=== PATIENT | female | born 1960 | race Caucasian/White ===

== ENCOUNTER 2017-11-21 09:47 | Emergency (ER) | payer OTHER ==
[~2017-11-21] VITALS: Ht 162.6 cm; Wt 78.6 kg
[~2017-11-21 09:47] MED LIST: ABILIFY10 MG PO; ALBUTEROL SULF8.5 GM IH; ALBUTEROL2.5 MG/3 M IH; AMBIEN10 MG PO; ATIVAN1 MG PO; CARDIZEM CD,CA120 MG PO; CARTIA XT120 MG PO; CELEXA40 MG PO; CITALOPRAM HBR40 MG PO; CVS MENOPAUSE PO; DILTIAZEM 24HR120 MG PO; ELAVIL25 MG PO; ELIQUIS2.5 MG PO; LASIX20 MG PO; LOPRESSOR50 MG PO; LORAZEPAM1 MG PO; MENOPAUSE RELI1 EACH PO; METOPROLOL TART50 MG PO; NORCO 5/3251 TABLET PO; PREDNISONE10 MG PO; PREDNISONE20 MG PO; PROAIR HFA8.5 GM IH; PROVENTIL,2.5 MG/3 M IH; ROBITUSSIN DM118 ML PO; ROBITUSSIN100 MG/5 M PO; SIMVASTATIN20 MG PO; SPIRIVA1 INHALATI IH; SYMBICORT60 INHALAT IH; XARELTO20 MG PO; ZOCOR20 MG PO; ZOLPIDEM TARTRA10 MG PO
[2017-11-21] MEDS ORDERED: DOXYCYCLINE HY100 MG PO (13:06)
[2017-11-21 13:34] VITALS: BP 103/75
== END 2017-11-21 13:35 | disposition home or self-care (01) ==
LOC: EME 09:47
PROC: 3E0234Z Introduction of Serum, Toxoid and Vaccine into Muscle, Percutaneous Approach (ICD-10-PCS; principal; 2017-11-21)
DX: S61.452A Open bite of left hand, initial encounter (principal); S61.451A Open bite of right hand, initial encounter; W54.0XXA Bitten by dog, initial encounter; Y93.K1 Activity, walking an animal; Y92.410 Unspecified street and highway as the place of occurrence of the external cause; J44.9 Chronic obstructive pulmonary disease, unspecified; I10 Essential (primary) hypertension; F41.9 Anxiety disorder, unspecified; F32.9 Major depressive disorder, single episode, unspecified; F17.200 Nicotine dependence, unspecified, uncomplicated; Z23 Encounter for immunization; Z79.51 Long term (current) use of inhaled steroids; Z79.01 Long term (current) use of anticoagulants; Z85.9 Personal history of malignant neoplasm, unspecified; Z90.710 Acquired absence of both cervix and uterus; Z88.6 Allergy status to analgesic agent; Z88.0 Allergy status to penicillin
CPT/HCPCS: 73130; 99281; 99284

== ENCOUNTER 2017-12-28 | Observation (INO) | payer OTHER ==
[2017-12-28] VITALS (7 sets, daily range): BP systolic 129–164; BP diastolic 74–94
[~2017-12-28] VITALS: Ht 156.2 cm; Wt 83.0 kg
[~2017-12-28] MED LIST changes: +DOXYCYCLINE HY100 MG PO; -ELIQUIS2.5 MG PO; +ELIQUIS5 MG PO
[2017-12-28 01:16] LABS: HEMOGLOBIN 14.4 G/DL (11.9-15.5); MCH 30.3 PG (29.0-34.0); MCHC 34.3 G/DL (30.0-36.0); MCV 88.2 FL (83-99); PLATELET COUNT 194 K/uL (156-360); RBC DIS.WIDTH-SD 42.1 % (39-53); RED BLOOD COUNT 4.76 M/uL (3.80-5.20); WHITE BLOOD COUNT 9.1 K/uL (4.1-10.2)
[2017-12-28 01:26] LABS: ALBUMIN 4.3 g/dL (3.2-4.8)
[2017-12-28 01:27] LABS: CHLORIDE 101 mEq/L (99-109); POTASSIUM 3.4 mEq/L (3.7-5.4); SODIUM 142 mEq/L (136-147)
[2017-12-28 01:29] LABS: GLUCOSE 119 mg/dL (70-99); TOTAL PROTEIN 6.9 g/dL (6.4-8.3)
[2017-12-28 01:31] LABS: TOTAL BILIRUBIN 0.9 mg/dL (0.0-1.0)
[2017-12-28 01:32] LABS: ALKALINE PHOSPHATASE 199 IU/L (3-129)
[2017-12-28 01:33] LABS: CREATININE 0.8 mg/dL (0.6-1.3); GFR ESTIMATE (CALCULATED) > 59 mL/min/
[2017-12-28 01:34] LABS: AST (GOT) 25 IU/L (2-34); UREA NITROGEN (BUN) 11 mg/dL (9-23)
[2017-12-28 01:35] LABS: ALT (GPT) 16 IU/L (3-49)
[2017-12-28 01:36] LABS: LIPASE 14 U/L (1.0-51.0)
[2017-12-28 01:43] LABS: TROP-I INTERPRETATION NEGATIVE; TROPONIN-I 0.01 ng/mL (0.0-0.30)
[2017-12-28 05:27] LABS: APPEARANCE CLEAR ((CLEAR)); BILIRUBIN NEGATIVE; BLOOD SMALL; COLOR YELLOW ((YELLOW)); GLUCOSE (STRIP) NEGATIVE; KETONES NEGATIVE; LEUKOCYTES NEGATIVE; NITRITE NEGATIVE; PROTEIN (STRIP) NEGATIVE; SPECIFIC GRAVITY 1.031 (1.000-1.030); UROBILINOGEN 0.2 MG/DL (0.2-1.0)
[2017-12-28 05:41] LABS: BACTERIA NONE SEEN /HPF; EPITHELIAL CELLS RARE /HPF; HYALINE CASTS 0-5 /LPF; MUCUS TRACE /LPF; WHITE BLOOD CELLS 0-5 /HPF (0-5)
[2017-12-28 07:20] LABS: MAGNESIUM 1.4 mg/dl (1.3-2.7)
[2017-12-28 08:34] LABS: INTACT PARATHYROID HORMONE 13 pg/mL (10-69)
[2017-12-28] MEDS ORDERED: AZITHROMYCIN250 MG1 PO (10:48)
[2017-12-29 04:10] VITALS: BP 142/89
[2017-12-29 06:49] LABS: ALKALINE PHOSPHATASE 165 IU/L (3-129); ALT (GPT) 13 IU/L (3-49); AST (GOT) 25 IU/L (2-34); CHLORIDE 100 MEQ/L (99-109); CREATININE 0.7 MG/DL (0.6-1.3); GFR ESTIMATE (CALCULATED) > 59 mL/min/; GLUCOSE 99 mg/dL (70-99); SODIUM 138 MEQ/L (136-147); TOTAL BILIRUBIN 0.9 MG/DL (0.0-1.0); TOTAL PROTEIN 6.8 G/DL (6.4-8.3); UREA NITROGEN (BUN) 6 mg/dL (9-23)
[2017-12-29 08:09] VITALS: BP 135/89
[2017-12-29 11:19] VITALS: BP 113/80
[2017-12-29] MEDS ORDERED: ENDOCET 5-3251 EACH PO (15:08)
[2017-12-29] MEDS ORDERED: FORTEO2.4 ML SC (15:12)
[2017-12-29] MEDS ORDERED: POLYETHYLENE GL17 GM PO (15:13)
[2017-12-29] MEDS ORDERED: DOCUSATE SODIU100 MG PO (15:13)
[2017-12-29 15:18] VITALS: BP 132/85
[2017-12-29] MEDS ORDERED: OXYCODONE-APAP1 EACH PO (16:21)
== END 2017-12-29 16:34 ==
LOC: EME → EDBD → EDOF 03:54 → 3EAST 03:54 → ENRESERV 03:55 → 3EAST 05:25 → ENRESERV 06:00 → 3EAST 12-29 16:34
PROVIDERS: Emergency Medicine; Physician Assistant Medical
PROC: 2W3QX1Z Immobilization of Right Lower Leg using Splint (ICD-10-PCS; principal; 2017-12-28)
DX: R55 Syncope and collapse (principal); S82.831A Other fracture of upper and lower end of right fibula, initial encounter for closed fracture; S82.391A Other fracture of lower end of right tibia, initial encounter for closed fracture; S92.324A Nondisplaced fracture of second metatarsal bone, right foot, initial encounter for closed fracture; J44.9 Chronic obstructive pulmonary disease, unspecified; I48.91 Unspecified atrial fibrillation; Z79.01 Long term (current) use of anticoagulants; E83.52 Hypercalcemia; K52.9 Noninfective gastroenteritis and colitis, unspecified; R93.2 Abnormal findings on diagnostic imaging of liver and biliary tract; E86.0 Dehydration; E87.6 Hypokalemia; I10 Essential (primary) hypertension; E78.5 Hyperlipidemia, unspecified; F17.200 Nicotine dependence, unspecified, uncomplicated; G47.33 Obstructive sleep apnea (adult) (pediatric); M19.90 Unspecified osteoarthritis, unspecified site; F41.8 Other specified anxiety disorders; Z82.49 Family history of ischemic heart disease and other diseases of the circulatory system; Z83.49 Family history of other endocrine, nutritional and metabolic diseases; Z80.9 Family history of malignant neoplasm, unspecified; Z88.0 Allergy status to penicillin; Z88.1 Allergy status to other antibiotic agents; Z88.6 Allergy status to analgesic agent
CPT/HCPCS: 71045; 73590; 73610; 73630; 73700; 74177; 80053; 81003; 82306; 82948; 83690; 83735; 83970; 84484; 85027; 93005; 94640; 94640 76; 97530 GP; 99281; 99285; G0378; G8978 GP CJ; G8979 GP CI; G8980 CJ; G8987 GO CJ; G8988 CI; G8989 CJ; J3010; J3480; J7040

== ENCOUNTER 2017-12-29 14:00 | Inpatient (IN) | payer OTHER ==
[~2017-12-29] VITALS: Ht 154.9 cm; Wt 74.0 kg
[~2017-12-29 14:00] MED LIST changes: +AZITHROMYCIN250 MG1 PO
[2017-12-29] MEDS ORDERED: ENDOCET 5-3251 EACH PO (15:08)
[2017-12-29] MEDS ORDERED: FORTEO2.4 ML SC (15:12)
[2017-12-29] MEDS ORDERED: POLYETHYLENE GL17 GM PO (15:13)
[2017-12-29] MEDS ORDERED: DOCUSATE SODIU100 MG PO (15:13)
[2017-12-29] MEDS ORDERED: OXYCODONE-APAP1 EACH PO (16:21)
[2017-12-29 16:56] VITALS: BP 133/69
[2017-12-30 00:12] VITALS: BP 103/56
[2017-12-30 04:43] VITALS: BP 125/71
[2017-12-30 05:32] LABS: HEMATOCRIT 40.2 % (36.0-46.0); HEMOGLOBIN 13.4 G/DL (11.9-15.5); MCH 29.6 PG (29.0-34.0); MCHC 33.3 G/DL (30.0-36.0); MCV 88.9 FL (83-99); PLATELET COUNT 202 K/uL (156-360); RBC DIS.WIDTH-SD 42.5 % (39-53); RED BLOOD COUNT 4.52 M/uL (3.80-5.20)
[2017-12-30 05:59] LABS: ALBUMIN 3.9 G/DL (3.2-4.8); ALKALINE PHOSPHATASE 158 IU/L (3-129); ALT (GPT) 11 IU/L (3-49); AST (GOT) 18 IU/L (2-34); CHLORIDE 101 MEQ/L (99-109); CREATININE 0.7 MG/DL (0.6-1.3); GFR ESTIMATE (CALCULATED) > 59 mL/min/; GLUCOSE 107 mg/dL (70-99); POTASSIUM 4.3 MEQ/L (3.7-5.4); SODIUM 140 MEQ/L (136-147); TOTAL BILIRUBIN 0.9 MG/DL (0.0-1.0); TOTAL PROTEIN 6.4 G/DL (6.4-8.3); UREA NITROGEN (BUN) 9 mg/dL (9-23)
[2017-12-30 15:33] VITALS: BP 104/70
[2017-12-31 05:05] VITALS: BP 91/57
[2017-12-31 09:19] VITALS: BP 118/74
[2017-12-31] MEDS ORDERED: LINZESS145 MCG PO (12:18)
[2017-12-31] MEDS ORDERED: DALIRESP500 MCG PO (12:19)
[2017-12-31 15:11] VITALS: BP 137/70
[2018-01-01 06:01] VITALS: BP 132/80
[2018-01-01 15:15] VITALS: BP 117/69
[2018-01-02 05:34] VITALS: BP 102/67
[2018-01-02] MEDS ORDERED: SPIRIVA RESPIMAT4 GM IH (12:01)
[2018-01-02] MEDS ORDERED: PRAVACHOL40 MG PO (12:02)
[2018-01-02] MEDS ORDERED: DULERA 200 MCG/13 GM IH (12:04)
[2018-01-02] MEDS ORDERED: SENNA-DOCUSATE1 EAC1 PO (12:54)
[2018-01-02] MEDS ORDERED: FOLIC ACID1 MG PO (12:55)
[2018-01-02] MEDS ORDERED: ASCORBIC ACID500 MG PO (12:55)
[2018-01-02] MEDS ORDERED: CLARITIN10 MG PO (12:56)
[2018-01-02] MEDS ORDERED: COLCRYS0.6 MG PO (12:56)
[2018-01-02] MEDS ORDERED: KEPPRA500 MG PO (12:56)
[2018-01-02] MEDS ORDERED: THERAGRAN1 TABLET PO (12:56)
[2018-01-02] MEDS ORDERED: CHANTIX1 MG PO (12:56)
[2018-01-02 15:27] VITALS: BP 115/76
[2018-01-03 05:20] VITALS: BP 106/73
[2018-01-03 16:29] VITALS: BP 111/59
[2018-01-04 05:18] VITALS: BP 99/62
[2018-01-04 15:18] VITALS: BP 127/79
[2018-01-05 05:48] VITALS: BP 103/73
[2018-01-05 11:21] VITALS: BP 104/69
[2018-01-05 18:00] VITALS: BP 142/75
[2018-01-06 05:40] VITALS: BP 102/62
[2018-01-06 15:24] VITALS: BP 107/75
[2018-01-07 04:10] VITALS: BP 120/60
[2018-01-07 15:11] VITALS: BP 106/85
[2018-01-08 05:02] VITALS: BP 104/67
[2018-01-08 15:46] VITALS: BP 109/50
[2018-01-09 05:35] VITALS: BP 110/68
[2018-01-09] MEDS ORDERED: DOCUSATE SODIU100 MG PO (12:04)
[2018-01-09] MEDS ORDERED: Milk Of Magnesia,MOM PO (12:04)
[2018-01-09] MEDS ORDERED: ENDOCET 5-3251 EACH PO (12:15)
== END 2018-01-09 13:42 | disposition home health service (06) | DRG 560 ==
LOC: 3WEST 14:00 → ENPENDDIS 01-09 → 3WEST 01-09 13:42
PROVIDERS: Physical Medicine & Rehabilitation Pain Medicine
PROC: F07M0ZZ Range of Motion and Joint Mobility Treatment of Musculoskeletal System - Whole Body (ICD-10-PCS; principal; 2017-12-29)
DX: S82.831D Other fracture of upper and lower end of right fibula, subsequent encounter for closed fracture with routine healing (principal); J98.11 Atelectasis; F33.9 Major depressive disorder, recurrent, unspecified; S82.391D Other fracture of lower end of right tibia, subsequent encounter for closed fracture with routine healing; S93.491D Sprain of other ligament of right ankle, subsequent encounter; Z79.01 Long term (current) use of anticoagulants; Z79.51 Long term (current) use of inhaled steroids; S92.311D Displaced fracture of first metatarsal bone, right foot, subsequent encounter for fracture with routine healing; S92.321D Displaced fracture of second metatarsal bone, right foot, subsequent encounter for fracture with routine healing; G89.11 Acute pain due to trauma; M81.0 Age-related osteoporosis without current pathological fracture; K59.00 Constipation, unspecified; W19.XXXD Unspecified fall, subsequent encounter; E78.5 Hyperlipidemia, unspecified; E83.52 Hypercalcemia; F17.210 Nicotine dependence, cigarettes, uncomplicated; F41.9 Anxiety disorder, unspecified; G40.909 Epilepsy, unspecified, not intractable, without status epilepticus; G47.30 Sleep apnea, unspecified; I10 Essential (primary) hypertension; I48.2 Chronic atrial fibrillation; J43.9 Emphysema, unspecified; M19.90 Unspecified osteoarthritis, unspecified site; Z82.49 Family history of ischemic heart disease and other diseases of the circulatory system
CPT/HCPCS: 73600; 73610; 80053; 85027; 94640; 94640 76; 97110 GO; 97530 GP; 99202

== ENCOUNTER → 2018-01-05 | Day surgery (SDC) | payer OTHER ==
[~2018-01-05] VITALS: Ht 154.9 cm; Wt 74.0 kg
[~2018-01-05] MED LIST changes: +ASCORBIC ACID500 MG PO; +CHANTIX1 MG PO; +CLARITIN10 MG PO; +COLCRYS0.6 MG PO; +DALIRESP500 MCG PO; +DOCUSATE SODIU100 MG PO; +DULERA 200 MCG/13 GM IH; +ENDOCET 5-3251 EACH PO; +FOLIC ACID1 MG PO; +FORTEO2.4 ML SC; +KEPPRA500 MG PO; +LINZESS145 MCG PO; +OXYCODONE-APAP1 EACH PO; +POLYETHYLENE GL17 GM PO; +PRAVACHOL40 MG PO; +SENNA-DOCUSATE1 EAC1 PO; +SPIRIVA RESPIMAT4 GM IH; +THERAGRAN1 TABLET PO
[2018-01-05 13:01] VITALS: BP 112/75
== END ==
LOC: SDC 11:20
PROC: 0SSF04Z Reposition Right Ankle Joint with Internal Fixation Device, Open Approach (ICD-10-PCS; principal; 2018-01-05)
DX: S82.841A Displaced bimalleolar fracture of right lower leg, initial encounter for closed fracture (principal); S93.491A Sprain of other ligament of right ankle, initial encounter; S92.321A Displaced fracture of second metatarsal bone, right foot, initial encounter for closed fracture; I10 Essential (primary) hypertension; E78.5 Hyperlipidemia, unspecified; I48.91 Unspecified atrial fibrillation; Z79.01 Long term (current) use of anticoagulants; J44.9 Chronic obstructive pulmonary disease, unspecified; F41.8 Other specified anxiety disorders; W18.30XA Fall on same level, unspecified, initial encounter; Z88.0 Allergy status to penicillin
CPT/HCPCS: 73600; 76000; C1713; J1170; J2405; J3010

== ENCOUNTER 2018-01-30 13:45 | Observation (INO) | payer OTHER ==
[~2018-01-30] VITALS: Ht 154.9 cm; Wt 74.0 kg
[~2018-01-30 13:45] MED LIST changes: +Milk Of Magnesia,MOM PO
[2018-01-30 14:11] LABS: HEMATOCRIT 39.7 % (36.0-46.0); MCH 30.8 PG (29.0-34.0); MCHC 35.3 G/DL (30.0-36.0); MCV 87.4 FL (83-99); PLATELET COUNT 264 K/uL (156-360); RBC DIS.WIDTH-CV 13.3 % (11.8-14.6); RBC DIS.WIDTH-SD 42.5 % (39-53); RED BLOOD COUNT 4.54 M/uL (3.80-5.20); WHITE BLOOD COUNT 7.5 K/uL (4.1-10.2)
[2018-01-30 14:25] LABS: INTER. NORMALIZED RATIO 1.8
[2018-01-30 14:27] LABS: CHLORIDE 104 mEq/L (99-109); POTASSIUM 3.3 mEq/L (3.7-5.4); SODIUM 142 mEq/L (136-147)
[2018-01-30 14:28] LABS: PTT 33.1 SEC (25-37)
[2018-01-30 14:29] LABS: GLUCOSE 88 mg/dL (70-99)
[2018-01-30 14:33] LABS: CREATININE 0.8 mg/dL (0.6-1.3); GFR ESTIMATE (CALCULATED) > 59 mL/min/; UREA NITROGEN (BUN) 8 mg/dL (9-23)
[2018-01-30 14:38] LABS: TROP-I INTERPRETATION NEGATIVE; TROPONIN-I 0.01 ng/mL (0.0-0.30)
[2018-01-30] MEDS ORDERED: MIRALAX17 GM PO (19:38)
[2018-01-30] MEDS ORDERED: FORTEO20 MICROGR SC (19:43)
[2018-01-30] MEDS ORDERED: DILTIAZEM 24HR240 MG PO (19:45)
[2018-01-30] MEDS ORDERED: CYCLOBENZAPRINE10 MG PO (19:45)
[2018-01-30] MEDS ORDERED: QUETIAPINE FUM150 MG PO (19:46)
[2018-01-30] MEDS ORDERED: METOPROLOL SUC100 MG PO (19:47)
[2018-01-30] MEDS ORDERED: LEVETIRACETAM500 MG PO (19:47)
[2018-01-30] MEDS ORDERED: LORAZEPAM1 MG PO (19:48)
[2018-01-30] MEDS ORDERED: AMITRIPTYLINE H50 MG PO (19:48)
[2018-01-30] MEDS ORDERED: QUETIAPINE FUMA50 MG PO (19:53)
[2018-01-30] MEDS ORDERED: RANITIDINE HCL150 MG PO (19:54)
[2018-01-30] MEDS ORDERED: SIMVASTATIN20 MG PO (19:54)
[2018-01-30 22:03] LABS: TROP-I INTERPRETATION NEGATIVE; TROPONIN-I < 0.01 ng/mL (0.0-0.30)
[2018-01-31 00:01] VITALS: BP 121/80
[2018-01-31 02:37] LABS: TROP-I INTERPRETATION NEGATIVE; TROPONIN-I 0.01 ng/mL (0.0-0.30)
[2018-01-31 04:45] VITALS: BP 167/63
[2018-01-31 04:57] VITALS: BP 108/72
[2018-01-31 07:13] VITALS: BP 131/89
== END 2018-01-31 11:18 | disposition home or self-care (01) ==
LOC: EME 13:45 → EDOF 20:19 → 4SOUTH 20:19 → EDOF 20:19 → ENRESERV 20:20 → 4SOUTH 21:28
PROVIDERS: Physician Assistant
DX: R07.9 Chest pain, unspecified (principal); E87.6 Hypokalemia; I10 Essential (primary) hypertension; I48.91 Unspecified atrial fibrillation; Z79.01 Long term (current) use of anticoagulants; E78.5 Hyperlipidemia, unspecified; J44.9 Chronic obstructive pulmonary disease, unspecified; G47.33 Obstructive sleep apnea (adult) (pediatric); F41.9 Anxiety disorder, unspecified; F32.9 Major depressive disorder, single episode, unspecified; Z98.890 Other specified postprocedural states; R06.02 Shortness of breath; R42 Dizziness and giddiness; Z82.49 Family history of ischemic heart disease and other diseases of the circulatory system; Z83.49 Family history of other endocrine, nutritional and metabolic diseases; Z87.891 Personal history of nicotine dependence; Z88.0 Allergy status to penicillin; Z88.6 Allergy status to analgesic agent; Z88.1 Allergy status to other antibiotic agents; Z88.5 Allergy status to narcotic agent; Z91.048 Other nonmedicinal substance allergy status
CPT/HCPCS: 71046; 71275; 80048; 83735; 84484; 85027; 85610; 85730; 93005; 94640; 99202; 99281; 99285; G0378; J3475; J7030